=== PATIENT | male | born 1970 | race Caucasian/White ===

== ENCOUNTER 2018-08-25 05:56 | Day surgery (SDC) | payer BC ==
[~2018-08-25] VITALS: Ht 177.8 cm; Wt 127.0 kg
[~2018-08-25 05:56] MED LIST: DILTIAZEM180 M1 PO; LISINOPRIL10 MG PO; ROSUVASTATIN CA20 MG PO
[2018-08-25 07:46] VITALS: BP 104/63
== END 2018-08-25 08:02 | disposition home or self-care (01) | DRG 951 ==
LOC: ENDO 05:56
PROVIDERS: ATTEND Surgery
PROC: 0DJD8ZZ Inspection of Lower Intestinal Tract, Via Natural or Artificial Opening Endoscopic (ICD-10-PCS; principal; 2018-08-25)
DX: Z12.11 Encounter for screening for malignant neoplasm of colon (principal); K57.30 Diverticulosis of large intestine without perforation or abscess without bleeding